=== PATIENT | male | born 1970 | race Hispanic/Latino ===

== ENCOUNTER 2022-06-24 14:51 | Emergency (ER) | payer SELFPAY ==
[2022-06-24] MEDS ORDERED: Morphine 4 MG/ML VIAL ONE ×2 (14:55→17:20)
[2022-06-24] MEDS ORDERED: Lidocaine 2% PF 5 ML VIAL ONE ×2 (15:05→15:06)
[2022-06-24 15:54] LABS: #Basophils 0.1 thou/uL (0.0-0.2); #Eosinphils 0.5 thou/uL (0.0-0.7); #Monocytes 0.8 thou/uL (0.11-0.59); #Neutrophils 4.6 thou/uL (1.40-6.50); %Basophils 1.4 % (0.0-1.0); %Eosinophils 5.5 % (0.0-10.0); %Lymphocytes 33.2 % (21.0-51.0); %Monocytes 8.3 % (0.0-10.0); %Neutrophils 51.6 % (42.0-75.0); Hemoglobin 16.2 g/dL (14.0-18.0); Mean Corpuscular HGB CONC 34.3 g/dL (32.0-36.0); Mean Corpuscular Hemoglobin 32.6 pg (27.0-31.0); Mean Corpuscular Volume 94.9 fl (78.0-98.0); Platelet Count 248 10x3/uL (130-400); RBC Distribution Width 11.3 % (11.5-14.5); Red Blood Cell (RBC) Count 4.98 mill/uL (4.70-6.10)
[2022-06-24 16:00] LABS: INR-International Normal Ratio 1.1; Prothrombin Time 14.5 sec (12.0-14.7)
[2022-06-24] MEDS ORDERED: Boostrix 0.5 ML (Tdap) VIAL (>/=7 yrs of age) ONE (16:00)
[2022-06-24 16:09] LABS: ALT (SGPT) 41 U/L (8-55); AST (SGOT) 25 U/L (5-34); Albumin 4.5 g/dL (3.5-5.0); Alkaline Phosphatase 167 U/L (40-110); Anion Gap 14 mmol/L (10-20); BUN (Urea Nitrogen) 15 mg/dL (8.9-20.6); Bilirubin, Total 0.4 mg/dL (0.2-1.2); Calc. Creatinine Clearance 0 mL/min (70-130); Calcium 9.3 mg/dL (7.8-10.44); Carbon Dioxide 24 mmol/L (22-29); Chloride 107 mmol/L (98-107); Estimated GFR 108; Globulin 3.1 g/dL (2.4-3.5); Glucose 96 mg/dL (70-105); Potassium 4.4 mmol/L (3.5-5.1); Protein, Total 7.6 g/dL (6.0-8.3); Sodium 141 mmol/L (136-145)
[2022-06-24] MEDS ORDERED: CEFAZOLIN 1 GM VIAL ONE (16:11)
[2022-06-24] MEDS ORDERED: Sodium Chloride 0.9% 100 ML ONE (16:13)
== END 2022-06-24 17:35 | disposition short-term general hospital (02) ==
LOC: BURERS 14:51
DX: S62.511B Displaced fracture of proximal phalanx of right thumb, initial encounter for open fracture (principal); F17.210 Nicotine dependence, cigarettes, uncomplicated; W20.8XXA Other cause of strike by thrown, projected or falling object, initial encounter
CPT/HCPCS: 36415; 80053; 85025; 85610; 90471; 90715; 96365; 96372; 96375; J0690; J2001; J2270; J3490